=== PATIENT | female | born 1990 | race Caucasian/White ===

== ENCOUNTER 2022-06-20 11:06 | Emergency (ER) | payer OTHER ==
[~2022-06-20] VITALS: Ht 167.6 cm; Wt 87.0 kg
[2022-06-20 11:09] VITALS: BP 100/56
== END 2022-06-20 11:25 | disposition home or self-care (01) ==
LOC: ER 11:06
DX: Z02.89 Encounter for other administrative examinations (principal)
CPT/HCPCS: 99283